=== PATIENT | female | born 1995 | race Caucasian/White ===

== ENCOUNTER 2020-06-20 13:24 | Outpatient (RCR) | payer OTHER | END 2020-08-16 | disposition home or self-care (01) | LOC: WSOH | DX: S33.6XXA Sprain of sacroiliac joint, initial encounter (principal); Y99.0 Civilian activity done for income or pay ==

== ENCOUNTER 2020-07-05 09:33 | Outpatient (RCR) | payer OTHER | END 2020-08-16 | disposition home or self-care (01) | LOC: WSOH | DX: S33.6XXD Sprain of sacroiliac joint, subsequent encounter (principal); Y99.0 Civilian activity done for income or pay ==